=== PATIENT | female | born 1930 | race Caucasian/White ===

== ENCOUNTER 2018-11-21 09:33 | Inpatient (IN) | payer MEDICARE, OTHER ==
[~2018-11-21] VITALS: Ht 165.1 cm; Wt 46.3 kg
[~2018-11-21 09:33] MED LIST: ACET325T21 PO; ASPI-612 PO; BUPR300T3 PO; CALC-31 PO; CRAN425C3 PO; CYAN500T17 PO; DEXT15DR5 EACHEYE; DEXT1DRO8 EACHEYE; DIPH25TA64 PO; ESOM20CA30 PO; FENO135C PO; FLUC100T7 PO; GUAI100L3 PO; HYDR-2145 PO; HYDR25CA PO; HYDR30CR TP; HYDR50TA6 PO; LACT30003 PO; LEVO25TA4 PO; LEVO50TA5 PO; LISI10TA PO; LUTE1CAP3 PO; MAG360OR24 PO; MAGN400O7 PO; METO25TA4 PO; MINE120C TP; MULT-114 PO; NYST15CR2 TP; NYST1POW2 TOP; POTA20TA12 PO; POTA20TA4 PO; PROC10TA57 PO; PROM25TA10 PO; RANI-376 PO; SENN-37 PO; SULF1TAB24 PO; TACR30OI4 TP; TRIF1TAB PO; [UNRECOGNIZED DRUG - CODE] BC; [UNRECOGNIZED DRUG - CODE] MM
--- NOTE | 2018-11-21 09:49 | PHYS DOC ---
Past Medical History Past Medical History: Anemia, Anxiety, Arrhythmia, Bronchitis, Constipation, Dementia, Depression, GERD, High Cholesterol, Hypertension, Hypothyroid, Schizophrenia, UTI, Other Additional Past Medical Histor: cardiac dysrhythmia, Past Surgical History: Other Additional Past Surgical Histo: unknown Alcohol Use: None Drug Use: None Adult General Chief Complaint Chief Complaint: WEAKNESS/GENERALIZED HPI HPI Patient is an 88-year-old female who arrives via EMS from her half-way. The patient's main complaint has been decreased appetite, and not eating or taking medications for the past 2 days. There is a questionable report of nausea and vomiting as well. The patient is awake, admits to "pain everywhere", but has not had any focal pain. She is not able to provide any reliable history, further history will be obtained from the nursing facility. Review of Systems Review of Systems Unable to obtain review of systems secondary to underlying dementia Current Medications Current Medications Current Medications Medications (Trade) Dose Ordered Sig/Ximena Start Time Stop Time Status Last Admin Dose Admin Info (CONTRAST GIVEN -- Rx MONITORING) 1 each PRN DAILY PRN 11/21/18 11:00 11/23/18 10:59 Iohexol (Omnipaque 300 Mg/ml) 50 ml 1X ONCE 11/21/18 11:00 11/21/18 11:01 DC 11/21/18 11:51 50 ML Sodium Chloride 1,000 ml @ 100 mls/hr Q10H 11/21/18 09:46 11/21/18 19:45 11/21/18 10:28 100 MLS/HR Allergies Allergies Allergies Coded Allergies Type Severity Reaction Last Updated Verified Penicillins Allergy Intermediate 05/13/16 Yes lactose Allergy Intermediate 05/13/16 Yes loxapine Allergy Intermediate 05/13/16 Yes I S O L A T I O N *CONTACT* Allergy Unknown 05/16/16 Yes Physical Exam Physical Exam PHYSICAL EXAM: CONSTITUTIONAL: Well developed, well nourished HEAD: normocephalic, atraumatic EENT: PERRL, EOMI. Conjunctivae normal color, sclerae non-icteric; moist mucous membranes. NECK: Supple, non-tender; no meningismus. LUNGS: There are some rhonchi in the right lower lung dorantes, otherwise Lungs CTA, breathing even and unlabored. Normal air movement. HEART: Regular rate and rhythm, no murmur CHEST: No deformity; non-tender ABDOMEN: The abdomen is soft, and non-tender, no masses or bruits. EXTREM: Normal ROM; no deformity, no calf tenderness. Normal pulses palpable in all extremities. There is no pedal edema. SKIN: No rash; no diaphoresis NEURO: Alert; normal speech, oriented to person only, able to follow some basic commands,; CN's grossly intact; strength grossly intact without focal deficit. BACK: No CVA TTP. Current Patient Data Vital Signs Vital Signs Date Time Temp Pulse Resp B/P (MAP) Pulse Ox O2 Delivery O2 Flow Rate FiO2 11/21/18 09:35 97.5 93 18 111/71 (84) 94 Room Air 97.5 Lab Values Laboratory Tests Test 11/21/18 10:00 11/21/18 10:20 White Blood Count 8.9 x10^3/uL (4.0-11.0) Red Blood Count 3.99 x10^6/uL (3.50-5.40) Hemoglobin 11.5 g/dL (12.0-15.5) L Hematocrit 33.8 % (36.0-47.0) L Mean Corpuscular Volume 85 fL (79-100) Mean Corpuscular Hemoglobin 29 pg (25-35) Mean Corpuscular Hemoglobin Concent 34 g/dL (31-37) Red Cell Distribution Width 13.3 % (11.5-14.5) Platelet Count 336 x10^3/uL (140-400) Neutrophils (%) (Auto) 83 % (31-73) H Lymphocytes (%) (Auto) 11 % (24-48) L Monocytes (%) (Auto) 6 % (0-9) Eosinophils (%) (Auto) 0 % (0-3) Basophils (%) (Auto) 0 % (0-3) Neutrophils # (Auto) 7.4 x10^3/uL (1.8-7.7) Lymphocytes # (Auto) 1.0 x10^3/uL (1.0-4.8) Monocytes # (Auto) 0.5 x10^3/uL (0.0-1.1) Eosinophils # (Auto) 0.0 x10^3/uL (0.0-0.7) Basophils # (Auto) 0.0 x10^3/uL (0.0-0.2) Prothrombin Time 15.0 SEC (11.7-14.0) H Prothrombin Time INR 1.2 (0.8-1.1) H Sodium Level 129 mmol/L (136-145) L Potassium Level 3.6 mmol/L (3.5-5.1) Chloride Level 93 mmol/L (98-107) L Carbon Dioxide Level 23 mmol/L (21-32) Anion Gap 13 (6-14) Blood Urea Nitrogen 66 mg/dL (7-20) H Creatinine 1.2 mg/dL (0.6-1.0) H Estimated GFR (Cockcroft-Gault) 42.4 BUN/Creatinine Ratio 55 (6-20) H Glucose Level 104 mg/dL (70-99) H Lactic Acid Level 1.0 mmol/L (0.4-2.0) Calcium Level 9.0 mg/dL (8.5-10.1) Magnesium Level 1.8 mg/dL (1.8-2.4) Total Bilirubin 0.5 mg/dL (0.2-1.0) Aspartate Amino Transferase (AST) 28 U/L (15-37) Alanine Aminotransferase (ALT) 25 U/L (14-59) Alkaline Phosphatase 77 U/L (46-116) Troponin I Quantitative < 0.017 ng/mL (0.000-0.055) MI-Tec-W-Type Natriuretic Peptide 394 pg/mL (0-449) Total Protein 7.2 g/dL (6.4-8.2) Albumin 3.1 g/dL (3.4-5.0) L Albumin/Globulin Ratio 0.8 (1.0-1.7) L Lipase 203 U/L (73-393) Thyroid Stimulating Hormone (TSH) 1.921 uIU/mL (0.358-3.74) Free Thyroxine 1.47 ng/dL (0.76-1.46) H Urine Collection Type U cath Urine Color Yellow Urine Clarity Clear Urine pH 5.5 Urine Specific [place] 1.020 Urine Protein Negative mg/dL (NEG-TRACE) Urine Glucose (UA) Negative mg/dL (NEG) Urine Ketones (Stick) Trace mg/dL (NEG) Urine Blood Negative (NEG) Urine Nitrite Negative (NEG) Urine Bilirubin Small (NEG) Urine Urobilinogen Dipstick 1.0 mg/dL (0.2 mg/dL) Urine Leukocyte Esterase Negative (NEG) Urine RBC 0 /HPF (0-2) Urine WBC Occ /HPF (0-4) Urine Squamous Epithelial Cells Occ /LPF Urine Amorphous Sediment Present /HPF Urine Bacteria 0 /HPF (0-FEW) Urine Hyaline Casts Occasional /HPF Urine Mucus Slight /LPF Laboratory Tests 11/21/18 10:00 Laboratory Tests 11/21/18 10:00 EKG EKG [Normal sinus rhythm a rate of 84 beats for minute, normal axis, normal inter vals, nonspecific ST/T changes are present diffusely.] Radiology/Procedures Radiology/Procedures [PROCEDURE: PORTABLE CHEST 1V Indication:Altered mental status TECHNIQUE:Portable AP chest X-ray COMPARISON: 07/17/2016 FINDINGS: Heart is normal in size. Ectatic thoracic aorta. Lungs are clear of focal consolidation. No pneumothorax or pleural effusion. Visualized bony thorax within normal limits. Deformity seen in the left shoulder joint most likely chronic. IMPRESSION: No acute pulmonary process. Chronic left shoulder deformity. Clinically correlate. ] PROCEDURE: CT ABD PELV W/ IV CONTRST ONLY PQRS Compliance statement: One or more of the following individualized dose reduction techniques were utilized for this examination: 1. Automated exposure control. 2. Adjustment of the mA and/or kV according to patient size. 3. Use of iterative reconstruction technique. Indication:Nausea and vomiting. TECHNIQUE: CT abdomen and pelvis with IV contrast with multiplanar reformats. COMPARISON: 03/20/2014 FINDINGS: Heart is normal in size. No pericardial or pleural effusion. Reticular opacities are seen in the left lung base which may be infectious or chronic changes. Circumferential wall thickening is seen of the visualized distal esophagus. Liver, spleen, pancreas, adrenals within normal limits. Gallstones are seen in the gallbladder fundus. No pericholecystic fluid. No calcified stone in the CBD. No nephrolithiasis or hydronephrosis. Simple cyst in the right kidney measuring 1.6 cm. No free pelvic fluid or ascites. No enlarged retroperitoneal or pelvic adenopathy. Moderate diffuse colonic stool burden. No bowel obstruction. Anterior pelvic and lower abdominal wall defect is seen with herniation of small bowel loops. The defect measures approximately 8.8 cm. Uterus is present. Urinary bladder demonstrates no radiopaque stone. No pneumoperitoneum. Mild levoscoliosis of the upper lumbar spine. No suspicious bony lesion. Mild compression deformity seen of the L2 vertebral body. Multilevel degenerative disc disease in the lumbar spine. Severe atherosclerotic plaque is seen in the abdominal aorta and bilateral iliac arteries. IMPRESSION: 1. Large anterior lower abdominal/pelvic wall defect with herniation of small bowel loops without bowel obstruction. 2. Cholelithiasis without imaging evidence of acute cholecystitis. 3. Wall thickening of the distal esophagus may be secondary to esophagitis. Clinically correlate with symptoms. PROCEDURE: CT HEAD WO CONTRAST CT HEAD WO CONTRAST History: altered mental status. Comparison: None. Technique: Noncontrast CT imaging was performed of the head. Coronal reconstruction was performed. Exposure: One or more of the following individualized dose reduction techniques were utilized for this examination: 1. Automated exposure control 2. Adjustment of the mA and/or kV according to patient size 3. Use of iterative reconstruction technique. Findings: No intracranial hemorrhage. No mass effect. No hydrocephalus. Mild brain parenchymal volume loss, within normal range for age. Imaged orbits are unremarkable. Frothy secretions within the right sphenoid sinus. Minimal scattered mucosal thickening. Mastoid air cells are clear. Impression: 1. No acute intracranial abnormality. 2. Mild right sphenoid sinus disease. Course & Med Decision Making Course & Med Decision Making Pertinent Labs and Imaging studies reviewed. (See chart for details) []The patient's condition remains stable. I spoke with the hospitalist, who accepted the patient to the hospital for further evaluation and treatment. Dragon Disclaimer Dragon Disclaimer This electronic medical record was generated, in whole or in part, using a voice recognition dictation system. Departure Departure Impression: Primary Impression: Dehydration Additional Impression: Acute renal insufficiency Disposition: ADMITTED INPATIENT Admitting Physician: HIMS Condition: STABLE Referrals: LAZARO DOWNEY MD (PCP) Problem Qualifiers KAYDEN HAINES MD Nov 21, 2018 09:49
--- NOTE | 2018-11-21 10:22 | RAD ---
Indication:Altered mental status TECHNIQUE:Portable AP chest X-ray COMPARISON: 07/17/2016 FINDINGS: Heart is normal in size. Ectatic thoracic aorta. Lungs are clear of focal consolidation. No pneumothorax or pleural effusion. Visualized bony thorax within normal limits. Deformity seen in the left shoulder joint most likely chronic. IMPRESSION: No acute pulmonary process. Chronic left shoulder deformity. Clinically correlate. Electronically signed by: Cody Cortez DO (11/21/2018 10:19 AM) [facility]
[2018-11-21 10:23] LABS: BASO % 0 % (0-3); EOS % 0 % (0-3); HEMATOCRIT 33.8 % (36.0-47.0); HEMOGLOBIN 11.5 g/dL (12.0-15.5); LYMPH % 11 % (24-48); MEAN CORPUSCULAR HEMOGLOBIN 29 pg (25-35); MEAN CORPUSCULAR HGB CONC 34 g/dL (31-37); MEAN CORPUSCULAR VOLUME 85 fL (79-100); MONO # 0.5 x10^3/uL (0.0-1.1); MONO % 6 % (0-9); NEUT # 7.4 x10^3/uL (1.8-7.7); NEUT % 83 % (31-73); PLATELET COUNT 336 x10^3/uL (140-400); RED BLOOD COUNT 3.99 x10^6/uL (3.50-5.40); RED CELL DISTRIBUTION WIDTH 13.3 % (11.5-14.5); WHITE BLOOD COUNT 8.9 x10^3/uL (4.0-11.0)
[2018-11-21] MEDS: IV NORMAL SALINE 1000ML BAG 1,000 ML IV SCH ×2 (10:28→21:01)
[2018-11-21 10:35] LABS: CREATININE 1.2 mg/dL (0.6-1.0); GFR 42.4; POTASSIUM 3.6 mmol/L (3.5-5.1)
[2018-11-21 10:46] LABS: FREE T4 1.47 ng/dL (0.76-1.46); THYROID STIM HORMONE (TSH) 1.921 uIU/mL (0.358-3.74)
[2018-11-21 10:47] LABS: ALBUMIN 3.1 g/dL (3.4-5.0); ALBUMIN/GLOBULIN RATIO 0.8 (1.0-1.7); MAGNESIUM 1.8 mg/dL (1.8-2.4); TOTAL BILIRUBIN 0.5 mg/dL (0.2-1.0); TOTAL PROTEIN 7.2 g/dL (6.4-8.2)
[2018-11-21] MEDS ORDERED: CONTRAST GIVEN. MC PRN (11:00)
[2018-11-21] MEDS ORDERED: IOHEXOL 300 MG/ML 100ML VIAL. IV ONE (11:00)
[2018-11-21 11:04] LABS: BILIRUBIN,URINE SMALL (NEG); CLARITY,URINE CLEAR; COLOR,URINE YELLOW; NITRITE,URINE NEGATIVE (NEG); PH,URINE 5.5; PROTEIN,URINE NEGATIVE (NEG-TRACE)
--- NOTE | 2018-11-21 11:20 | RAD ---
CT HEAD WO CONTRAST History: altered mental status. Comparison: None. Technique: Noncontrast CT imaging was performed of the head. Coronal reconstruction was performed. Exposure: One or more of the following individualized dose reduction techniques were utilized for this examination: 1. Automated exposure control 2. Adjustment of the mA and/or kV according to patient size 3. Use of iterative reconstruction technique. Findings: No intracranial hemorrhage. No mass effect. No hydrocephalus. Mild brain parenchymal volume loss, within normal range for age. Imaged orbits are unremarkable. Frothy secretions within the right sphenoid sinus. Minimal scattered mucosal thickening. Mastoid air cells are clear. Impression: 1. No acute intracranial abnormality. 2. Mild right sphenoid sinus disease. Electronically signed by: Hitesh Wells DO (11/21/2018 11:18 AM) [id number]
[2018-11-21 11:22] LABS: AMORPHOUS SEDIMENT,UR PRESENT /HPF; SQUAMOUS EPITHELIAL CELL,UR OCC /LPF
[2018-11-21 11:23] LABS: BACTERIA,URINE 0 /HPF (0-FEW); HYALINE CASTS, URINE OCCASIONAL /HPF; RBC,URINE 0 /HPF (0-2); WBC,URINE OCC /HPF (0-4)
--- NOTE | 2018-11-21 11:27 | RAD ---
PQRS Compliance statement: One or more of the following individualized dose reduction techniques were utilized for this examination: 1. Automated exposure control. 2. Adjustment of the mA and/or kV according to patient size. 3. Use of iterative reconstruction technique. Indication:Nausea and vomiting. TECHNIQUE: CT abdomen and pelvis with IV contrast with multiplanar reformats. COMPARISON: 03/20/2014 FINDINGS: Heart is normal in size. No pericardial or pleural effusion. Reticular opacities are seen in the left lung base which may be infectious or chronic changes. Circumferential wall thickening is seen of the visualized distal esophagus. Liver, spleen, pancreas, adrenals within normal limits. Gallstones are seen in the gallbladder fundus. No pericholecystic fluid. No calcified stone in the CBD. No nephrolithiasis or hydronephrosis. Simple cyst in the right kidney measuring 1.6 cm. No free pelvic fluid or ascites. No enlarged retroperitoneal or pelvic adenopathy. Moderate diffuse colonic stool burden. No bowel obstruction. Anterior pelvic and lower abdominal wall defect is seen with herniation of small bowel loops. The defect measures approximately 8.8 cm. Uterus is present. Urinary bladder demonstrates no radiopaque stone. No pneumoperitoneum. Mild levoscoliosis of the upper lumbar spine. No suspicious bony lesion. Mild compression deformity seen of the L2 vertebral body. Multilevel degenerative disc disease in the lumbar spine. Severe atherosclerotic plaque is seen in the abdominal aorta and bilateral iliac arteries. IMPRESSION: 1. Large anterior lower abdominal/pelvic wall defect with herniation of small bowel loops without bowel obstruction. 2. Cholelithiasis without imaging evidence of acute cholecystitis. 3. Wall thickening of the distal esophagus may be secondary to esophagitis. Clinically correlate with symptoms. Electronically signed by: Cody Cortez DO (11/21/2018 11:24 AM) [facility]
[2018-11-21] MEDS ORDERED: IV DEXTROSE 5%-LACT RINGERS 1,000 ML IV ONE (12:15)
[2018-11-21 13:10] VITALS: BP 139/76
--- NOTE | 2018-11-21 13:37 | EKG ---
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
--- NOTE | 2018-11-21 13:53 | PDOC1 ---
History and Physical Date of Admission Date of Admission DATE: 11/21/18 TIME: 13:51 Identification/Chief Complaint Chief Complaint Failure to thrive Source Source: Caregiver, Chart review, Patient History of Present Illness History of Present Illness Ms Butler is an 88-year-old F w/ PMHx anemia, Anxiety, Arrhythmia, Bronchitis, Constipation, Dementia, Depression, GERD, High Cholesterol, Hypertension, Hypothyroid, Schizophrenia, arrhythmia who arrives via EMS from her senior care in [place]. SNF notes decreased appetite, and not eating or taking medications for the past 2 days. Question of nausea and vomiting as well. The patient is awake, asking for pain medication, states she hurts everywhere, but no focal pain. She is not able to provide any reliable history, is not oriented to location or year, month or day. Labs significant for sodium of 129, K of 3.6, Cr 1.2, BUN 66 Hb 11.[address] abdomen/pelvis shows thickening of esophagus. EKG - sinus rhythm, left atrial tracing abnormal, apparent prior anteroseptal infarct I have contacted her guardian, her daughter, Anny, she states her has cancer and she may not be able to come visit until tonight, but makes it clear her mother is a DNR/DNI and would not wish for a PEG tube or parenteral feeding. Past Medical History Cardiovascular: HTN, Hyperlipidemia, Other Pulmonary: No pertinent hx CENTRAL NERVOUS SYSTEM: Dementia, Other GI: Constipation, GERD Heme/Onc: Anemia NOS, B12 deficiency Psych: Anxiety, Depression, Schizophrenia Musculoskeletal: Osteoarthritis Rheumatologic: No pertinent hx Infectious disease: No pertinent hx Renal/: UTI Endocrine: Hypothyroidism Past Surgical History Past Surgical History: Appendectomy Family History Family History: Heart Disease Social History Smoke: No ALCOHOL: occassional Drugs: None Current Problem List Problem List Problems Medical Problems: (1) Acute renal insufficiency Status: Acute (2) Dehydration Status: Acute Current Medications Current Medications Current Medications Sodium Chloride 1,000 ml @ 100 mls/hr Q10H IV Last administered on 11/21/18at 10:28; Start 11/21/18 at 09:46; Stop 11/21/18 at 19:45 Iohexol (Omnipaque 300 Mg/ml) 50 ml 1X ONCE IV Last administered on 11/21/18at 11:51; Start 11/21/18 at 11:00; Stop 11/21/18 at 11:01; Status DC Info (CONTRAST GIVEN -- Rx MONITORING) 1 each PRN DAILY PRN MC SEE COMMENTS; Start 11/21/18 at 11:00; Stop 11/23/18 at 10:59 Dextrose/Lactated Ringer's 1,000 ml @ 125 mls/hr 1X ONCE IV Last administered on 11/21/18at 12:49; Start 11/21/18 at 12:15; Stop 11/21/18 at 20:14 Active Scripts Active Klor-Con M20 (Potassium Chloride) 20 Meq Tab.er.prt 20 Meq PO BIDWMEALS Levothyroxine Sodium 50 Mcg Tablet 50 Mcg PO DAILY07 Prinivil (Lisinopril) 10 Mg Tablet 10 Mg PO BID Reported Artificial Tears Eye Drops (Dextran 70/Hypromellose) 15 Ml Drops 1 Drop EACHEYE TID Milk Of Magnesia (Magnesium Hydroxide) 400 Mg/5 Ml Oral.susp 400 Mg PO PRN DAILY PRN Hydrochlorothiazide Tablet (Hydrochlorothiazide) 50 Mg Tablet 75 Mg PO PRN PRN Give 75mg po one time a day for shortness of breath Hold for SBP <100. Eucerin Creme (Mineral Oil/White Petrolatum) 120 Gm Cream..g. 1 [place] TP BID Metoprolol Tartrate 25 Mg Tablet 1 Tab PO BID Multivitamins With Minerals (Multivitamin With Minerals) 1 Each Tablet 1 Each PO BID Alum-Mag Hydroxide-Simeth Liq (Mag Hydrox/Al Hydrox/Simeth) 360 Ml Oral.susp 30 Ml PO PRN Q4HRS PRN Compazine (Prochlorperazine Maleate) 10 Mg Tablet 10 Mg PO PRN Q8HRS PRN Acetaminophen 325 Mg Tablet 325 Mg PO PRN Q6HRS PRN Nexium 24Hr (Esomeprazole Magnesium) 20 Mg Capsule.dr 40 Mg PO DAILY07 B-12 (Cyanocobalamin (Vitamin B-12)) 500 Mcg Tablet 500 Mcg PO DAILY Wellbutrin Xl (Bupropion Hcl) 300 Mg Tab.er.24h 1 Tab PO DAILY Vistaril (Hydroxyzine Pamoate) 25 Mg Capsule 1 Cap PO QID PRN Senokot-S Tablet (Sennosides/Docusate Sodium) 1 Each Tablet 1 Tab PO BID Robitussin Mucus-Chest Congest (Guaifenesin) 100 Mg/5 Ml Liquid 5 Ml PO PRN Q12HR PRN Nystatin-Triamcinolone Cream (Nystatin/Triamcin) 15 Gm Cream..g. 1 [place] TP BID Hydrocortisone-Aloe 1% Cream (Hydrocortisone/Aloe Vera) 30 Gm Cream..g. 30 Gm TP BID Aspirin Ec (Aspirin) 81 Mg Tablet. 1 Tab PO DAILY Allergies Allergies: Coded Allergies: Penicillins (Verified Allergy, Intermediate, 05/13/16) lactose (Verified Allergy, Intermediate, 05/13/16) loxapine (Verified Allergy, Intermediate, 05/13/16) I S O L A T I O N *CONTACT* (Verified Allergy, Unknown, 05/16/16) mrsa ROS Review of System Unable to obtain accurate review of systems General: YES: Fatigue, Malaise Physical Exam General: Alert, Cooperative, mild distress HEENT: Atraumatic, PERRLA, EOMI, Mucous membr. moist/pink Lungs: Clear to auscultation, Normal air movement Heart: S1S2 Abdomen: Normal bowel sounds, Soft, No tenderness, No hepatosplenomegaly, No masses Extremities: No clubbing, No cyanosis, No edema, Normal pulses, No tenderness/swelling Skin: No rashes, No breakdown, No significant lesion Neuro: Cranial nerves 3-12 NL, Reflexes 2+ Vitals Vitals Vital Signs Date Time Temp Pulse Resp B/P (MAP) Pulse Ox O2 Delivery O2 Flow Rate FiO2 11/21/18 13:10 97.4 89 16 139/76 (97) 87 Room Air 97.4 Labs Labs Laboratory Tests Test 11/21/18 10:00 11/21/18 10:20 White Blood Count 8.9 x10^3/uL (4.0-11.0) Red Blood Count 3.99 x10^6/uL (3.50-5.40) Hemoglobin 11.5 g/dL (12.0-15.5) Hematocrit 33.8 % (36.0-47.0) Mean Corpuscular Volume 85 fL (79-100) Mean Corpuscular Hemoglobin 29 pg (25-35) Mean Corpuscular Hemoglobin Concent 34 g/dL (31-37) Red Cell Distribution Width 13.3 % (11.5-14.5) Platelet Count 336 x10^3/uL (140-400) Neutrophils (%) (Auto) 83 % (31-73) Lymphocytes (%) (Auto) 11 % (24-48) Monocytes (%) (Auto) 6 % (0-9) Eosinophils (%) (Auto) 0 % (0-3) Basophils (%) (Auto) 0 % (0-3) Neutrophils # (Auto) 7.4 x10^3/uL (1.8-7.7) Lymphocytes # (Auto) 1.0 x10^3/uL (1.0-4.8) Monocytes # (Auto) 0.5 x10^3/uL (0.0-1.1) Eosinophils # (Auto) 0.0 x10^3/uL (0.0-0.7) Basophils # (Auto) 0.0 x10^3/uL (0.0-0.2) Prothrombin Time 15.0 SEC (11.7-14.0) Prothromb Time International Ratio 1.2 (0.8-1.1) Sodium Level 129 mmol/L (136-145) Potassium Level 3.6 mmol/L (3.5-5.1) Chloride Level 93 mmol/L (98-107) Carbon Dioxide Level 23 mmol/L (21-32) Anion Gap 13 (6-14) Blood Urea Nitrogen 66 mg/dL (7-20) Creatinine 1.2 mg/dL (0.6-1.0) Estimated GFR (Cockcroft-Gault) 42.4 BUN/Creatinine Ratio 55 (6-20) Glucose Level 104 mg/dL (70-99) Lactic Acid Level 1.0 mmol/L (0.4-2.0) Calcium Level 9.0 mg/dL (8.5-10.1) Magnesium Level 1.8 mg/dL (1.8-2.4) Total Bilirubin 0.5 mg/dL (0.2-1.0) Aspartate Amino Transf (AST/SGOT) 28 U/L (15-37) Alanine Aminotransferase (ALT/SGPT) 25 U/L (14-59) Alkaline Phosphatase 77 U/L (46-116) Troponin I Quantitative < 0.017 ng/mL (0.000-0.055) KB-Vxt-O-Type Natriuretic Peptide 394 pg/mL (0-449) Total Protein 7.2 g/dL (6.4-8.2) Albumin 3.1 g/dL (3.4-5.0) Albumin/Globulin Ratio 0.8 (1.0-1.7) Lipase 203 U/L (73-393) Thyroid Stimulating Hormone (TSH) 1.921 uIU/mL (0.358-3.74) Free Thyroxine 1.47 ng/dL (0.76-1.46) Urine Collection Type U cath Urine Color Yellow Urine Clarity Clear Urine pH 5.5 Urine Specific Regina 1.020 Urine Protein Negative mg/dL (NEG-TRACE) Urine Glucose (UA) Negative mg/dL (NEG) Urine Ketones (Stick) Trace mg/dL (NEG) Urine Blood Negative (NEG) Urine Nitrite Negative (NEG) Urine Bilirubin Small (NEG) Urine Urobilinogen Dipstick 1.0 mg/dL (0.2 mg/dL) Urine Leukocyte Esterase Negative (NEG) Urine RBC 0 /HPF (0-2) Urine WBC Occ /HPF (0-4) Urine Squamous Epithelial Cells Occ /LPF Urine Amorphous Sediment Present /HPF Urine Bacteria 0 /HPF (0-FEW) Urine Hyaline Casts Occasional /HPF Urine Mucus Slight /LPF Laboratory Tests Test 11/21/18 10:00 11/21/18 10:20 White Blood Count 8.9 x10^3/uL (4.0-11.0) Red Blood Count 3.99 x10^6/uL (3.50-5.40) Hemoglobin 11.5 g/dL (12.0-15.5) Hematocrit 33.8 % (36.0-47.0) Mean Corpuscular Volume 85 fL (79-100) Mean Corpuscular Hemoglobin 29 pg (25-35) Mean Corpuscular Hemoglobin Concent 34 g/dL (31-37) Red Cell Distribution Width 13.3 % (11.5-14.5) Platelet Count 336 x10^3/uL (140-400) Neutrophils (%) (Auto) 83 % (31-73) Lymphocytes (%) (Auto) 11 % (24-48) Monocytes (%) (Auto) 6 % (0-9) Eosinophils (%) (Auto) 0 % (0-3) Basophils (%) (Auto) 0 % (0-3) Neutrophils # (Auto) 7.4 x10^3/uL (1.8-7.7) Lymphocytes # (Auto) 1.0 x10^3/uL (1.0-4.8) Monocytes # (Auto) 0.5 x10^3/uL (0.0-1.1) Eosinophils # (Auto) 0.0 x10^3/uL (0.0-0.7) Basophils # (Auto) 0.0 x10^3/uL (0.0-0.2) Prothrombin Time 15.0 SEC (11.7-14.0) Prothromb Time International Ratio 1.2 (0.8-1.1) Sodium Level 129 mmol/L (136-145) Potassium Level 3.6 mmol/L (3.5-5.1) Chloride Level 93 mmol/L (98-107) Carbon Dioxide Level 23 mmol/L (21-32) Anion Gap 13 (6-14) Blood Urea Nitrogen 66 mg/dL (7-20) Creatinine 1.2 mg/dL (0.6-1.0) Estimated GFR (Cockcroft-Gault) 42.4 BUN/Creatinine Ratio 55 (6-20) Glucose Level 104 mg/dL (70-99) Lactic Acid Level 1.0 mmol/L (0.4-2.0) Calcium Level 9.0 mg/dL (8.5-10.1) Magnesium Level 1.8 mg/dL (1.8-2.4) Total Bilirubin 0.5 mg/dL (0.2-1.0) Aspartate Amino Transf (AST/SGOT) 28 U/L (15-37) Alanine Aminotransferase (ALT/SGPT) 25 U/L (14-59) Alkaline Phosphatase 77 U/L (46-116) Troponin I Quantitative < 0.017 ng/mL (0.000-0.055) HD-Mjb-Y-Type Natriuretic Peptide 394 pg/mL (0-449) Total Protein 7.2 g/dL (6.4-8.2) Albumin 3.1 g/dL (3.4-5.0) Albumin/Globulin Ratio 0.8 (1.0-1.7) Lipase 203 U/L (73-393) Thyroid Stimulating Hormone (TSH) 1.921 uIU/mL (0.358-3.74) Free Thyroxine 1.47 ng/dL (0.76-1.46) Urine Collection Type U cath Urine Color Yellow Urine Clarity Clear Urine pH 5.5 Urine Specific Regina 1.020 Urine Protein Negative mg/dL (NEG-TRACE) Urine Glucose (UA) Negative mg/dL (NEG) Urine Ketones (Stick) Trace mg/dL (NEG) Urine Blood Negative (NEG) Urine Nitrite Negative (NEG) Urine Bilirubin Small (NEG) Urine Urobilinogen Dipstick 1.0 mg/dL (0.2 mg/dL) Urine Leukocyte Esterase Negative (NEG) Urine RBC 0 /HPF (0-2) Urine WBC Occ /HPF (0-4) Urine Squamous Epithelial Cells Occ /LPF Urine Amorphous Sediment Present /HPF Urine Bacteria 0 /HPF (0-FEW) Urine Hyaline Casts Occasional /HPF Urine Mucus Slight /LPF Images Images CT abd/pelv - 1. Large anterior lower abdominal/pelvic wall defect with he rniation of small bowel loops without bowel obstruction. 2. Cholelithiasis without imaging evidence of acute cholecystitis. 3. Wall thickening of the distal esophagus may be secondary to esophagitis. Clinically correlate with symptoms. CXR - No acute pulmonary process. Chronic left shoulder deformity. Clinically correlate. CT head - 1. No acute intracranial abnormality. 2. Mild right sphenoid sinus disease. VTE Prophylaxis Ordered VTE Prophylaxis Devices: Yes VTE Pharmacological Prophylaxi: Yes Assessment/Plan Assessment/Plan A/P: Nausea and vomiting - CT abdomen shows thickened esophagus, will give IV zofran Diffuse myalgias - will check CK Hyponatremia - likely from hypovolemia, will give IVF resuscitation, monitor Acute encephalopathy - likely related to elevated BUN, less likely infectious, will check procalcitonin to r/o infectious etiology, likely this is metabolic AUBRIE - baseline Cr less than 1, with elevated BUN this is likely vasomotor nephropathy from poor PO intake. IVF and hand filer balance wheel to see Anemia - likely of chronic disease, will check iron studies Anxiety - will cont SNF anxiolytics Arrhythmia - uncertain history, listed in SNF records. EKG here EKG - sinus rhythm, left atrial tracing abnormal, apparent prior anteroseptal infarct Constipation - cont miralax Dementia - likely alzheimer type Depression - will cont meds GERD - cont H2 gillian. If her pain and nausea continue may consult GI High Cholesterol - cont statin Hypertension - cont home meds Hypothyroid - TSH WNL - will cont levothyroxine Schizophrenia - per SNF history FEN - Pureed diet (she is adentulous). NSS 100cc/hr PPX - lovenox CODE - DNR/DNI Dispo - inpatient for nausea, vomiting, Acute encephalopathy, likely 2 midnights JEREMIAS PADILLA MD Nov 21, 2018 13:53
[2018-11-21] MEDS ORDERED: ONDANSETRON PF 4 MG/2 ML VIAL. IV PRN (14:45)
[2018-11-21] MEDS ORDERED: RANI150C PO (14:54)
[2018-11-21] MEDS ORDERED: PRED5DRO16 EACHEYE (14:54)
[2018-11-21] MEDS ORDERED: ONDA4TAB7 PO (14:54)
[2018-11-21] MEDS ORDERED: SENN1TAB62 PO (14:54)
[2018-11-21] MEDS ORDERED: AMLO5TAB10 PO (14:54)
[2018-11-21] MEDS ORDERED: POLY17PO29 PO (14:54)
[2018-11-21] MEDS ORDERED: LISI-334 PO (14:54)
[2018-11-21] MEDS ORDERED: MIRT15TA PO (14:54)
[2018-11-21 15:00] VITALS: BP 118/67
[2018-11-21] MEDS ORDERED: POLYETHYLENE GLYCOL 3350 17 GM PACKET. PO PRN (15:15)
[2018-11-21] MEDS ORDERED: MAGNESIUM HYDROXIDE 2,400 MG/30 ML ORAL.SUSP. PO PRN (15:15)
[2018-11-21] MEDS ORDERED: VITS A & D/LANOLIN TOPICAL OINTMENT 56GM TUBE. TP PRN (15:15)
[2018-11-21] MEDS ORDERED: MAG HYDROX/ALUMINUM HYD/SIMETH 30 ML ORAL.SUSP PO PRN (15:30)
[2018-11-21] MEDS ORDERED: ONDANSETRON ODT 4 MG TAB.RAPDIS. PO PRN (15:30)
[2018-11-21] MEDS: POTASSIUM CHLORIDE 20 MEQ TABLET.ER. PO SCH (17:12)
[2018-11-21] MEDS: ACETAMINOPHEN 325 MG TABLET. PO PRN ×2 (17:12→19:18)
[2018-11-21 19:00] VITALS: BP 133/74
[2018-11-21] MEDS: IPRATRPIUM/ALBUTEROL 0.5/2.5MG 3 ML NEBU. NEB SCH (19:53)
[2018-11-21] MEDS: FAMOTIDINE 20 MG TABLET. PO SCH (20:58)
[2018-11-21] MEDS: SENNOSIDES/DOCUSATE 8.6/50MG TABLET. PO SCH (20:58)
[2018-11-21] MEDS: hydrOXYzine 25 MG TABLET PO SCH (20:58)
[2018-11-21] MEDS: MIRTAZAPINE 15 MG TABLET PO SCH (20:59)
[2018-11-21] MEDS: LISINOPRIL 20 MG TABLET PO SCH (20:59)
[2018-11-21] MEDS: POLYVINYL ALCOHOL 1.4% OPHTH SOLUTION 15ML BOTTLE. OU SCH (21:00)
[2018-11-21] MEDS: MINERAL OIL/PETROLATUM TOPICAL CREAM 113GM JAR. TP SCH (21:00)
[2018-11-21] MEDS: DEXAMETHASONE 0.1% OPHTH SOLUTION 5ML BOTTLE. OU SCH ×2 (21:01→23:56)
[2018-11-21 23:00] VITALS: BP 130/71
[2018-11-22 03:00] VITALS: BP 130/70
[2018-11-22] MEDS: DEXAMETHASONE 0.1% OPHTH SOLUTION 5ML BOTTLE. OU SCH ×6 (04:10→23:31)
[2018-11-22] MEDS: ACETAMINOPHEN 325 MG TABLET. PO PRN ×2 (05:37→23:44)
[2018-11-22] MEDS: LEVOTHYROXINE 50 MCG TABLET PO SCH (06:23)
[2018-11-22 07:00] VITALS: BP 127/73
[2018-11-22] MEDS: IPRATRPIUM/ALBUTEROL 0.5/2.5MG 3 ML NEBU. NEB SCH ×4 (07:37→19:39)
[2018-11-22 08:54] LABS: CALCIUM 8.1 mg/dL (8.5-10.1); CREATININE 0.7 mg/dL (0.6-1.0)
[2018-11-22] MEDS: POTASSIUM CHLORIDE 20 MEQ TABLET.ER. PO SCH ×2 (09:01→16:26)
[2018-11-22] MEDS: SENNOSIDES/DOCUSATE 8.6/50MG TABLET. PO SCH ×2 (09:01→20:33)
[2018-11-22] MEDS: ASPIRIN ENTERIC COATED 81 MG TABLET.DR. PO SCH (09:01)
[2018-11-22] MEDS: CYANOCOBALAMIN (VITAMIN B-12) 1,000 MCG TABLET. PO SCH (09:01)
[2018-11-22] MEDS: IV NORMAL SALINE 1000ML BAG 1,000 ML IV SCH ×2 (09:01→16:25)
[2018-11-22] MEDS: hydrOXYzine 25 MG TABLET PO SCH ×3 (09:01→20:33)
[2018-11-22] MEDS: MULTIVITAMIN with MINERAL TABLET. PO SCH (09:01)
[2018-11-22] MEDS: buPROPion XL 150 MG TAB.ER.24H. PO SCH (09:02)
[2018-11-22] MEDS: MINERAL OIL/PETROLATUM TOPICAL CREAM 113GM JAR. TP SCH ×2 (09:02→20:31)
[2018-11-22] MEDS: LISINOPRIL 20 MG TABLET PO SCH ×2 (09:02→20:34)
[2018-11-22] MEDS: POLYVINYL ALCOHOL 1.4% OPHTH SOLUTION 15ML BOTTLE. OU SCH ×3 (09:03→20:31)
--- NOTE | 2018-11-22 09:04 | NUR ---
IP: Pt has a hx of + mrsa screen on 07/17/16. Pt to be in contact precautions. Recommend a nasal screen and initiation of Nozin decolonization process.
[2018-11-22 11:00] VITALS: BP 105/60
--- NOTE | 2018-11-22 11:05 | PDOC ---
[employer] PROGRESS NOTE Chief Complaint Chief Complaint Dehydration Altered Mental Status Failure to thrive Dementia Acute Renal Insufficiency Anemia of chronic disease GERD Hyperlipidemia Hyponatremia Schizophrenia History of Present Illness History of Present Illness 11/22/18 Pt seen and examined at bedside CAIT RN Vitals/I&O Vitals/I&O: Vital Signs Date Time Temp Pulse Resp B/P (MAP) Pulse Ox O2 Delivery O2 Flow Rate FiO2 11/22/18 09:03 83 127/73 11/22/18 08:00 Room Air 11/22/18 07:38 97 11/22/18 07:00 97.9 18 97.9 11/21/18 15:00 1.0 I & O 11/21/18 11/21/18 11/22/18 14:59 22:59 06:59 Intake Total 1500 ml 240 ml Balance 1500 ml 240 ml Physical Exam General: Alert, Cooperative, mild distress Lungs: Clear Abdomen: Normal bowel sounds, Soft, No tenderness, No hepatosplenomegaly, No masses Extremities: No clubbing, No cyanosis, No edema, Normal pulses, No tenderness/swelling Skin: No rashes, No breakdown, No significant lesion Labs Labs: Laboratory Tests Test 11/22/18 06:54 Sodium Level 137 mmol/L (136-145) Potassium Level 3.0 mmol/L (3.5-5.1) Chloride Level 104 mmol/L (98-107) Carbon Dioxide Level 23 mmol/L (21-32) Anion Gap 10 (6-14) Blood Urea Nitrogen 37 mg/dL (7-20) Creatinine 0.7 mg/dL (0.6-1.0) Estimated GFR (Cockcroft-Gault) 79.0 Glucose Level 71 mg/dL (70-99) Calcium Level 8.1 mg/dL (8.5-10.1) Review of Systems Review of Systems: co productive cough No co chest pain No co vision changes Assessment and Plan Assessmemt and Plan Problems Medical Problems: (1) Acute encephalopathy Status: Acute (2) Acute renal insufficiency Status: Acute (3) Anemia due to chronic illness Status: Chronic (4) Dehydration Status: Acute (5) Dementia Status: Chronic (6) GERD (gastroesophageal reflux disease) Status: Chronic (7) Hyperlipidemia Status: Chronic (8) Hypertension Status: Chronic (9) Hyponatremia Status: Acute (10) Schizophrenia Status: Chronic Assessment Dehydration Altered Mental Status Failure to thrive Dementia Acute Renal Insufficiency Anemia of chronic disease GERD Hyperlipidemia Hyponatremia Schizophrenia Plan IV Fluids Mucinex 600 PO BID DVT Prophylaxis Trend Labs PT/OT Continue Home Meds Comment Review of Relevant I have reviewed the following items rodolfo (where applicable) has been applied. Medications: Current Medications Medications (Trade) Dose Ordered Sig/Ximena Route PRN Reason Start Time Stop Time Status Last Admin Dose Admin Dextrose/Lactated Ringer's 1,000 ml @ 125 mls/hr 1X ONCE IV 11/21/18 12:15 11/21/18 20:14 DC 11/21/18 12:49 Acetaminophen (Tylenol) 325 mg PRN Q8HRS PRN PO MILD PAIN / TEMP 11/21/18 15:15 11/22/18 05:37 Aspirin (Ecotrin) 81 mg DAILY PO 11/22/18 09:00 11/22/18 09:03 Levothyroxine Sodium (Synthroid) 50 mcg DAILY07 PO 11/22/18 07:00 11/22/18 06:23 Lisinopril (Prinivil) 20 mg BID PO 11/21/18 21:00 11/22/18 09:03 Multi-Ingred Cream/Lotion/Oil/ Oint (Hydrocerin Cream) 1 martha BID TP 11/21/18 21:00 11/22/18 09:03 Mirtazapine (Remeron) 15 mg QHS PO 11/21/18 21:00 11/21/18 21:01 Potassium Chloride (Klor-Con) 20 meq BIDWMEALS PO 11/21/18 17:00 11/22/18 09:03 Senna/Docusate Sodium (Senna Plus) 1 tab BID PO 11/21/18 21:00 11/22/18 09:03 Bupropion HCl (Wellbutrin Xl) 300 mg DAILY PO 11/22/18 09:00 11/22/18 09:03 Cyanocobalamin (Vitamin B-12) 500 mcg DAILY PO 11/22/18 09:00 11/22/18 09:03 Artificial Tears (Artificial Tears) 1 drop TID OU 11/21/18 21:00 11/22/18 09:03 Hydroxyzine HCl (Atarax) 25 mg TID PO 11/21/18 21:00 11/22/18 09:03 Multivitamins (Thera M Plus) 1 tab DAILY PO 11/22/18 09:00 11/22/18 09:03 Dexamethasone (Maxidex) 1 drop Q4HRS OU 11/21/18 20:00 11/22/18 09:03 Famotidine (Pepcid) 10 mg QHS PO 11/21/18 21:00 11/21/18 21:01 Albuterol/ Ipratropium (Duoneb) 3 ml RTQID NEB 11/21/18 20:00 11/22/18 07:38 DANIS MARKS III DO Nov 22, 2018 11:05
[2018-11-22] MEDS: guaiFENesin DM 600/30MG 1 TAB TAB.ER.12H PO SCH ×2 (12:08→20:34)
[2018-11-22 15:00] VITALS: BP 107/54
[2018-11-22 19:00] VITALS: BP 146/73
[2018-11-22] MEDS: FAMOTIDINE 20 MG TABLET. PO SCH (20:33)
[2018-11-22] MEDS: MIRTAZAPINE 15 MG TABLET PO SCH (20:34)
[2018-11-22 23:00] VITALS: BP 156/75
[2018-11-23] MEDS: IV NORMAL SALINE 1000ML BAG 1,000 ML IV SCH (02:35)
[2018-11-23 03:00] VITALS: BP 139/86
[2018-11-23] MEDS: DEXAMETHASONE 0.1% OPHTH SOLUTION 5ML BOTTLE. OU SCH ×2 (03:56→08:07)
[2018-11-23] MEDS: LEVOTHYROXINE 50 MCG TABLET PO SCH (06:17)
[2018-11-23 07:00] VITALS: BP 139/67
[2018-11-23] MEDS: IPRATRPIUM/ALBUTEROL 0.5/2.5MG 3 ML NEBU. NEB SCH ×2 (07:55→11:16)
[2018-11-23] MEDS: guaiFENesin DM 600/30MG 1 TAB TAB.ER.12H PO SCH (08:05)
[2018-11-23] MEDS: hydrOXYzine 25 MG TABLET PO SCH (08:05)
[2018-11-23] MEDS: buPROPion XL 150 MG TAB.ER.24H. PO SCH (08:06)
[2018-11-23] MEDS: LISINOPRIL 20 MG TABLET PO SCH (08:06)
[2018-11-23] MEDS: CYANOCOBALAMIN (VITAMIN B-12) 1,000 MCG TABLET. PO SCH (08:06)
[2018-11-23] MEDS: MULTIVITAMIN with MINERAL TABLET. PO SCH (08:06)
[2018-11-23] MEDS: SENNOSIDES/DOCUSATE 8.6/50MG TABLET. PO SCH (08:06)
[2018-11-23] MEDS: ASPIRIN ENTERIC COATED 81 MG TABLET.DR. PO SCH (08:06)
[2018-11-23 08:07] LABS: CALCIUM 7.9 mg/dL (8.5-10.1); CREATININE 0.5 mg/dL (0.6-1.0); GFR 116.4; POTASSIUM 3.5 mmol/L (3.5-5.1)
[2018-11-23] MEDS: POTASSIUM CHLORIDE 20 MEQ TABLET.ER. PO SCH (08:07)
[2018-11-23] MEDS: MINERAL OIL/PETROLATUM TOPICAL CREAM 113GM JAR. TP SCH (08:07)
[2018-11-23] MEDS: POLYVINYL ALCOHOL 1.4% OPHTH SOLUTION 15ML BOTTLE. OU SCH (08:07)
--- NOTE | 2018-11-23 08:26 | NUR ---
SW following pt for dc planning. Chart reviewed. ZAIRE confirmed with facility Pt is LTC resident at [facility], phone: [phone], fax: [phone]. Will continue to follow. Addendum: 11/23/18 at 1357 by LILLIE TAI Orders faxed to [facility] and transport on the way to fiber pick[facility] pt. ZAIRE left a voice mail to pt's family, Anny regarding dc plan.
[2018-11-23 11:00] VITALS: BP 143/89
--- NOTE | 2018-11-23 11:18 | PDOC ---
[employer] PROGRESS NOTE Chief Complaint Chief Complaint Dehydration Altered Mental Status Failure to thrive Dementia Acute Renal Insufficiency Anemia of chronic disease GERD Hyperlipidemia Hyponatremia Schizophrenia History of Present Illness History of Present Illness 11/23/18 Pt seen and examined resting w/ NAD CAIT HARRIS 11/22/18 Pt seen and examined at bedside CAIT HARRIS Vitals/I&O Vitals/I&O: Vital Signs Date Time Temp Pulse Resp B/P (MAP) Pulse Ox O2 Delivery O2 Flow Rate FiO2 11/23/18 11:00 98.6 80 14 143/89 (107) 99 Room Air 98.6 I & O 11/22/18 11/22/18 11/23/18 15:00 23:00 07:00 Intake Total 0 ml 1050 ml Balance 0 ml 1050 ml Physical Exam General: Alert, Cooperative, No acute distress Heart: Regular rate, Normal S1, Normal S2 Lungs: Clear Abdomen: Normal bowel sounds, Soft, No tenderness, No hepatosplenomegaly, No masses Extremities: No clubbing, No cyanosis, No edema, Normal pulses, No tenderness/swelling Skin: No rashes, No breakdown, No significant lesion Labs Labs: Laboratory Tests Test 11/23/18 06:15 Sodium Level 139 mmol/L (136-145) Potassium Level 3.5 mmol/L (3.5-5.1) Chloride Level 107 mmol/L (98-107) Carbon Dioxide Level 21 mmol/L (21-32) Anion Gap 11 (6-14) Blood Urea Nitrogen 21 mg/dL (7-20) Creatinine 0.5 mg/dL (0.6-1.0) Estimated GFR (Cockcroft-Gault) 116.4 Glucose Level 67 mg/dL (70-99) Calcium Level 7.9 mg/dL (8.5-10.1) Review of Systems Review of Systems: No co SOB No co vision changes Assessment and Plan Assessmemt and Plan Problems Medical Problems: (1) Acute encephalopathy Status: Acute (2) Acute renal insufficiency Status: Acute (3) Anemia due to chronic illness Status: Chronic (4) Dehydration Status: Acute (5) Dementia Status: Chronic (6) GERD (gastroesophageal reflux disease) Status: Chronic (7) Hyperlipidemia Status: Chronic (8) Hypertension Status: Chronic (9) Hyponatremia Status: Acute (10) Schizophrenia Status: Chronic Assessment Dehydration Altered Mental Status Failure to thrive Dementia Acute Renal Insufficiency Anemia of chronic disease GERD Hyperlipidemia Hyponatremia Schizophrenia Plan IV fluids Pt at baseline, D/C to LTC Comment Review of Relevant I have reviewed the following items rodolfo (where applicable) has been applied. Medications: Current Medications Medications (Trade) Dose Ordered Sig/Ximena Route PRN Reason Start Time Stop Time Status Last Admin Dose Admin Guaifenesin (MUCINEX ER with DM) 1 tab BID PO 11/22/18 11:30 11/23/18 08:12 DANIS MARKS III DO Nov 23, 2018 11:18
--- NOTE | 2018-11-23 12:14 | DS ---
DATE OF DISCHARGE: 11/23/2018 ADMISSION DIAGNOSIS: Dehydration. DISCHARGE DIAGNOSES: Resolving dehydration, also history of hypertension, hyperlipidemia, dementia, B12 deficiency, gastroesophageal reflux disease, depression, schizophrenia, osteoarthritis, hypothyroidism. CONSULTS: None. PROCEDURES: None. HOSPITAL COURSE: The patient is a pleasant elderly female who presented with decreased appetite, not taking her meds, vomiting and coughing and had overall decreased p.o. intake, so she developed dehydration. She also had diffuse myalgias. In the ER, we know she has some hyponatremia with an acute metabolic encephalopathy and acute kidney injury. She was admitted. We gave her IV fluids and continued her home meds. We did some PT and OT, DVT prophylaxis and over the next 48 hours, she did well. This morning, I saw and examined her. She is at her baseline. Labs look reasonable. Her creatinine is down to 0.5. Her BUN is 21 from 37. Basically, she is at her baseline. We [facility] DISPOSITION: Long-term care. ACTIVITY: As tolerated. DIET: Low sodium. MEDICATIONS: Please see the MRAD. TOTAL TIME: 38 minutes. YOLIL Sandy MARKS DO DR: MATA/kelsie JOB#: [id number] / [id number]
--- NOTE | 2018-11-23 13:56 | NUR ---
Patient was discharged from the unit at 1355. Patient was escorted from the unit in a wheelchair by staff down to the transportation vehicle driven by [facility] staff. Patient was transferred from the hospital's wheelchair to the facility chair utilizing a gait belt. Patient left with all her belongings and discharge paperwork. Report was called to Deepika at [facility] at 1345.
== END 2018-11-23 13:55 | disposition home or self-care (01) | DRG 682 ==
LOC: ER 09:33 → 5 SOUTH 12:00
PROVIDERS: ADMIT Internal Medicine; ATTEND Internal Medicine
DX: N17.9 Acute kidney failure, unspecified (principal); G93.41 Metabolic encephalopathy; E87.1 Hypo-osmolality and hyponatremia; D63.8 Anemia in other chronic diseases classified elsewhere; E03.9 Hypothyroidism, unspecified; E78.00 Pure hypercholesterolemia, unspecified; E78.5 Hyperlipidemia, unspecified; E86.0 Dehydration; E86.1 Hypovolemia; F02.80 Dementia in other diseases classified elsewhere, unspecified severity, without behavioral disturbance, psychotic disturbance, mood disturbance, and anxiety; F32.9 Major depressive disorder, single episode, unspecified; G30.9 Alzheimer's disease, unspecified; I10 Essential (primary) hypertension; F41.9 Anxiety disorder, unspecified; F20.9 Schizophrenia, unspecified; I25.2 Old myocardial infarction; J40 Bronchitis, not specified as acute or chronic; K21.9 Gastro-esophageal reflux disease without esophagitis; K22.9 Disease of esophagus, unspecified; K59.00 Constipation, unspecified; K80.20 Calculus of gallbladder without cholecystitis without obstruction; R62.7 Adult failure to thrive; Z66 Do not resuscitate; Z88.0 Allergy status to penicillin; Z88.8 Allergy status to other drugs, medicaments and biological substances
CPT/HCPCS: 36415; 70450; 71045; 74177; 80048; 80053; 81001; 82550; 82607; 82728; 83540; 83550; 83605; 83690; 83735; 83880; 84145; 84439; 84443; 84484; 85025; 85610; 87040; 87641; 93005; 94640; 94760; J2405; J7030; J7620; Q9967; 99285-25; G0378

== ENCOUNTER 2019-01-06 05:23 | Emergency (ER) | payer MEDICARE, OTHER ==
[~2019-01-06] VITALS: Ht 175.3 cm; Wt 53.5 kg
[~2019-01-06 05:23] MED LIST changes: +AMLO5TAB10 PO; +LISI-334 PO; +MIRT15TA PO; +ONDA4TAB7 PO; +POLY17PO29 PO; +PRED5DRO16 EACHEYE; +RANI150C PO; +SENN1TAB62 PO
[2019-01-06] MEDS ORDERED: fentaNYL PF VIAL 100 MCG/2 ML VIAL ONE (05:44)
[2019-01-06] MEDS ORDERED: PROPOFOL 50 ML IV ONE (05:44)
[2019-01-06] MEDS ORDERED: PROPOFOL 20 ML IV ONE (06:00)
[2019-01-06] MEDS ORDERED: SODIUM BICARB ADULT 8.4% 50 MEQ/50 ML DISP.SYRIN. ONE (06:00)
[2019-01-06] MEDS ORDERED: ATROPINE 0.5 MG/5 ML DISP.SYRINGE. ONE (06:00)
[2019-01-06] MEDS ORDERED: DOPamine 400MG/250ML PREMIX 400 MG/250 ML BAG IV ONE (06:00)
[2019-01-06] MEDS ORDERED: IV NORMAL SALINE 1000ML BAG 1,000 ML IV ONE (06:00)
[2019-01-06] MEDS ORDERED: CALCIUM CHLORIDE 1,000 MG/10 ML DISP.SYRIN ONE (06:00)
[2019-01-06] MEDS ORDERED: EPINEPHrine SYRINGE 1 MG/10 ML SYRINGE ONE (06:00)
[2019-01-06] MEDS ORDERED: MIDAZOLAM HCL/PF 5 MG/5 ML VIAL. ONE (06:00)
[2019-01-06] MEDS ORDERED: NOREPINEPHRIN 8MG/250ML PREMIX 250 ML IV ONE (06:00)
[2019-01-06 06:02] LABS: BASO % 0 % (0-3); EOS % 0 % (0-3); HEMATOCRIT 34.7 % (36.0-47.0); LYMPH # 1.2 x10^3/uL (1.0-4.8); LYMPH % 8 % (24-48); MEAN CORPUSCULAR HEMOGLOBIN 30 pg (25-35); MEAN CORPUSCULAR HGB CONC 32 g/dL (31-37); MEAN CORPUSCULAR VOLUME 94 fL (79-100); MONO # 0.3 x10^3/uL (0.0-1.1); MONO % 2 % (0-9); NEUT # 13.5 x10^3/uL (1.8-7.7); NEUT % 90 % (31-73); PLATELET COUNT 160 x10^3/uL (140-400); RED CELL DISTRIBUTION WIDTH 18.1 % (11.5-14.5); WHITE BLOOD COUNT 15.1 x10^3/uL (4.0-11.0)
[2019-01-06] MEDS ORDERED: CALCIUM GLUCONATE 1,000 MG/10 ML VIAL. ONE (06:02)
[2019-01-06 06:10] LABS: PROTHROMBIN TIME PATIENT 18.3 SEC (11.7-14.0)
[2019-01-06 06:27] LABS: ALBUMIN 2.1 g/dL (3.4-5.0); ALBUMIN/GLOBULIN RATIO 0.6 (1.0-1.7); ALK PHOS 193 U/L (46-116); ANION GAP 25 (6-14); BLOOD UREA NITROGEN 49 mg/dL (7-20); BUN/CREATININE RATIO 22 (6-20); CALCIUM 9.6 mg/dL (8.5-10.1); CHLORIDE 105 mmol/L (98-107); CREATININE 2.2 mg/dL (0.6-1.0); GFR 21.1; GLUCOSE 57 mg/dL (70-99); SODIUM 139 mmol/L (136-145); TOTAL BILIRUBIN 0.6 mg/dL (0.2-1.0); TOTAL PROTEIN 5.6 g/dL (6.4-8.2)
--- NOTE | 2019-01-06 06:27 | PHYS DOC ---
Past Medical History Past Medical History: Anemia, Anxiety, Arrhythmia, Bronchitis, Constipation, Dementia, Depression, GERD, High Cholesterol, Hypertension, Hypothyroid, Schizophrenia, UTI, Other Additional Past Medical Histor: cardiac dysrhythmia, (RACHEAL GAN MD) Past Surgical History: Other Additional Past Surgical Histo: unknown (RACHEAL GAN MD) Alcohol Use: None Drug Use: None (RACHEAL GAN MD) Adult General Chief Complaint Chief Complaint: CPR/FULL ARREST HPI HPI Patient is a 88 year old female brought in by ambulance cardiac arrest. He was complaining of abdominal pain and vomiting and then on X-ray arrival was bradycardic and lost her pulse within a very short time they initiated usual protocol intubation epi atropine and CPR downtime at least 25 minutes on arrival to the emergency room she did regain a pulse. She did was sort of looking around the room without did not appear to be volitionally she was not following commands her pupils were fixed and dilated Abdominal examination she did have a large ventral hernia that was soft and reducible there was no obvious peritoneal findings there was equal breath sounds anteriorly on pulmonary examination patient was being bagged really not breathing on her own very well patient was quite temperature of 90 (RACHEAL GAN MD) Review of Systems Review of Systems unable due to ams (RACHEAL GAN MD) Current Medications Current Medications Current Medications Medications (Trade) Dose Ordered Sig/Ximena Start Time Stop Time Status Last Admin Dose Admin Calcium Gluconate (Calcium Gluconate) 1,000 mg STK-MED ONCE 01/06/19 06:02 01/06/19 06:02 DC Fentanyl Citrate (Fentanyl 2ml Vial) 100 mcg STK-MED ONCE 01/06/19 05:44 01/06/19 05:44 DC Levofloxacin/ Dextrose 50 ml @ 50 mls/hr Q24H 01/07/19 06:30 Levofloxacin/ Dextrose (Levaquin Per Pharmacy) 1 each PRN DAILY PRN 01/06/19 06:30 Morphine Sulfate (Morphine Sulfate) 6 mg 1X ONCE 01/06/19 07:00 01/06/19 07:01 DC Norepinephrine Bitartrate 250 ml @ 9.781 mls/ hr 1X ONCE 01/06/19 06:00 01/07/19 07:33 Propofol 20 ml @ 0 mls/hr 1X ONCE 01/06/19 06:00 01/06/19 06:01 DC Sodium Chloride 1,000 ml @ 1,000 mls/hr 1X ONCE 01/06/19 06:00 01/06/19 06:59 DC (EDENILSON AVENDAÑO MD) Allergies Allergies Allergies Coded Allergies Type Severity Reaction Last Updated Verified Penicillins Allergy Intermediate 05/13/16 Yes lactose Allergy Intermediate 05/13/16 Yes loxapine Allergy Intermediate 05/13/16 Yes I S O L A T I O N *CONTACT* Allergy Unknown 05/16/16 Yes (EDENILSON AVENDAÑO MD) Physical Exam Physical Exam Constitutional: ill appearing cachectic, intubated, cpr in progress HENT: Normocephalic, atraumatic, bilateral external ears normal, oropharynx dry, no oral exudates, nose normal. [] Eyes: Fixed pupils patient does move her neck around the room after CPR sort of a seeming to look around but not making eye contact Neck: Normal range of motion, no tenderness, supple, no stridor. [] Lungs & Thorax: Bilateral breath sounds clear to auscultation anteriorly after cpr Abdomen: Bowel sounds normal, soft, large soft somewhat reducible ventral hernia no peritoneal signs Skin: Warm, dry, no erythema, no rash. [] Extremities: No tenderness, no cyanosis, no clubbing, ROM intact, no edema. [] Neurologic: See above (RACHEAL GAN MD) Current Patient Data Vital Signs Vital Signs Date Time Temp Pulse Resp B/P (MAP) Pulse Ox O2 Delivery O2 Flow Rate FiO2 01/06/19 05:36 Ventilator (EDENILSON AVENDAÑO MD) Lab Values Laboratory Tests Test 01/06/19 05:40 01/06/19 06:39 White Blood Count 15.1 x10^3/uL (4.0-11.0) H Red Blood Count 3.70 x10^6/uL (3.50-5.40) Hemoglobin 11.0 g/dL (12.0-15.5) L Hematocrit 34.7 % (36.0-47.0) L Mean Corpuscular Volume 94 fL (79-100) Mean Corpuscular Hemoglobin 30 pg (25-35) Mean Corpuscular Hemoglobin Concent 32 g/dL (31-37) Red Cell Distribution Width 18.1 % (11.5-14.5) H Platelet Count 160 x10^3/uL (140-400) Neutrophils (%) (Auto) 90 % (31-73) H Lymphocytes (%) (Auto) 8 % (24-48) L Monocytes (%) (Auto) 2 % (0-9) Eosinophils (%) (Auto) 0 % (0-3) Basophils (%) (Auto) 0 % (0-3) Neutrophils # (Auto) 13.5 x10^3/uL (1.8-7.7) H Lymphocytes # (Auto) 1.2 x10^3/uL (1.0-4.8) Monocytes # (Auto) 0.3 x10^3/uL (0.0-1.1) Eosinophils # (Auto) 0.0 x10^3/uL (0.0-0.7) Basophils # (Auto) 0.0 x10^3/uL (0.0-0.2) Segmented Neutrophils % 85 % (35-66) H Band Neutrophils % 2 % (0-9) Lymphocytes % 10 % (24-48) L Monocytes % 3 % (0-10) Platelet Estimate Adequate (ADEQUATE) Prothrombin Time 18.3 SEC (11.7-14.0) H Prothrombin Time INR 1.6 (0.8-1.1) H Sodium Level 139 mmol/L (136-145) Potassium Level 7.5 mmol/L (3.5-5.1) *H Chloride Level 105 mmol/L (98-107) Carbon Dioxide Level 9 mmol/L (21-32) *L Anion Gap 25 (6-14) H Blood Urea Nitrogen 49 mg/dL (7-20) H Creatinine 2.2 mg/dL (0.6-1.0) H Estimated GFR (Cockcroft-Gault) 21.1 BUN/Creatinine Ratio 22 (6-20) H Glucose Level 57 mg/dL (70-99) L Lactic Acid Level 15.2 mmol/L (0.4-2.0) *H Calcium Level 9.6 mg/dL (8.5-10.1) Total Bilirubin 0.6 mg/dL (0.2-1.0) Aspartate Amino Transferase (AST) 4433 U/L (15-37) H Alanine Aminotransferase (ALT) 2192 U/L (14-59) H Alkaline Phosphatase 193 U/L (46-116) H Troponin I Quantitative 0.037 ng/mL (0.000-0.055) DV-Fer-U-Type Natriuretic Peptide 2709 pg/mL (0-449) H Total Protein 5.6 g/dL (6.4-8.2) L Albumin 2.1 g/dL (3.4-5.0) L Albumin/Globulin Ratio 0.6 (1.0-1.7) L O2 Saturation 99 % (92-99) Arterial Blood pH 7.04 (7.35-7.45) *L Arterial Blood pH (Temp corrected) 7.10 Arterial Blood pCO2 at Patient Temp 27 mmHg (35-46) L Arterial Blood pCO2 (Temp correct) 21 mmHg Arterial Blood pO2 at Patient Temp 353 mmHg (65-108) H Arterial Blood pO2 (Temp corrected) 327 mmHg Arterial Blood HCO3 7 mmol/L (21-28) L Arterial Blood Base Excess -22 mmol/L (-3-3) L FiO2 100 Laboratory Tests 01/06/19 05:40 Laboratory Tests 01/06/19 05:40 (EDENILSON AVENDAÑO MD) EKG EKG []EKG shows probable junctional rhythm rate of 50 flipped T waves anteriorly no definite STEMI was identified (RACHEAL GAN MD) Radiology/Procedures Radiology/Procedures [] (RACHEAL GAN MD) Course & Med Decision Making Course & Med Decision Making Pertinent Labs and Imaging studies reviewed. (See chart for details) [] Critical care time was 40 minutes exclusive of procedures. bradycardic arrest, hypotensive hypotehermic, prolonged downtime limited pupillary response. curently on pressors, dopamine and levophed, got calcium and bicarbonate. i attempted femoral central line, got arterial puncture, held pressure for 5 minutes, aborted attempt. d/w daughter at 6 am, on the way, she asks to delay care decisions until her arrival, 20 minutes away. 6:45 AM conversation with the daughter plan to withdraw care last week the patient told the daughter that if something else for it happened her she wants to go peacefully At this point time we are planning to withdraw pressors dr avendaño here in [place] to call time of if needed. (RACHEAL GAN MD) Course & Med Decision Making 0755: Per request of family patient was off of ventilator and had agonal breathing and weak pulse with bradycardia that stopped at 0752 and patient pronounced at [address] Primary care physician Dr. Lazaro Jacobsen was contacted and agreed to write certificate. (EDENILSON AVENDAÑO MD) Dragon Disclaimer Dragon Disclaimer This electronic medical record was generated, in whole or in part, using a voice recognition dictation system. (RACHEAL GAN MD) Departure Departure Impression: Primary Impression: Cardiac arrest Disposition: 20 (at 0 752) Condition: Referrals: LAZARO DOWNEY MD (PCP) RACHEAL GAN MD Jan 06, 2019 06:27 EDENILSON AVENDAÑO MD Jan 06, 2019 08:08
[2019-01-06 06:29] LABS: ALT (SGPT) 2192 U/L (14-59)
[2019-01-06] MEDS ORDERED: levOFLOXacin PER PHARMACY. MC PRN (06:30)
[2019-01-06 06:33] LABS: CARBON DIOXIDE 9 mmol/L (21-32); POTASSIUM 7.5 mmol/L (3.5-5.1)
[2019-01-06 06:44] LABS: BASE EXCESS ABG -22 mmol/L (-3-3); HCO3 ABG 7 mmol/L (21-28); PCO2 ABG 27 mmHg (35-46); PO2 ABG 353 mmHg (65-108); SAT O2 ABG 99 % (92-99)
[2019-01-06 06:47] LABS: CORRECTED PCO2 ABG 21 mmHg; CORRECTED PO2 ABG 327 mmHg
[2019-01-06 06:56] LABS: FIO2 ABG 100
[2019-01-06] MEDS ORDERED: MORPHINE SULFATE 10 MG/ML VIAL. IV ONE (07:00)
[2019-01-06 07:06] LABS: AST (SGOT) 4433 U/L (15-37)
[2019-01-06 07:30] VITALS: BP 37/24
[2019-01-06 07:47] LABS: % BANDS 2 % (0-9); % LYMPHS 10 % (24-48); % MONOS 3 % (0-10); % SEGS 85 % (35-66); PLT ESTIMATE ADEQUATE (ADEQUATE)
--- NOTE | 2019-01-07 06:36 | EKG ---
[facility] [address] [place] [address] Test Date: 2019-01-06 Test Time: 05:39:02 Pat Name: PHILIP BURROWS Department: Room: Gender: F [employer]ice: : [id number] Requested By: RACHEAL GAN Order Number: [id number] Reading MD: Measurements Intervals [place] Rate: 104 P: HI: QRS: -68 QRSD: 118 T: 87 QT: 384 QTc: 512 Interpretive Statements IRREGULAR RHYTHM, NO P-WAVE FOUND VENTRICULAR PREMATURE COMPLEX(ES) ABNORMAL LEFT AXIS DEVIATION R-S TRANSITION ZONE IN V LEADS DISPLACED TO THE RIGHT LEFT ANTERIOR FASCICULAR BLOCK QRS(T) CONTOUR ABNORMALITY CONSIDER ANTEROLATERAL MYOCARDIAL DAMAGE ABNORMAL ECG RI6.01 No previous ECG available for comparison
== END 2019-01-06 09:15 | disposition expired ==
LOC: ER 05:23
DX: I46.9 Cardiac arrest, cause unspecified (principal); R11.10 Vomiting, unspecified; R10.9 Unspecified abdominal pain; F41.9 Anxiety disorder, unspecified; F32.9 Major depressive disorder, single episode, unspecified; K21.9 Gastro-esophageal reflux disease without esophagitis; E78.00 Pure hypercholesterolemia, unspecified; I10 Essential (primary) hypertension; E03.9 Hypothyroidism, unspecified
CPT/HCPCS: 31500; 36415; 36600; 80053; 82805; 83605; 83880; 84484; 85007; 85025; 85610; 87040; 92950; 93005; 99291; J0171; J0461; J1265; J2250; J3490; 94002